=== PATIENT | male | born 1940 | race Caucasian/White ===

== ENCOUNTER 2018-06-16 08:01 | Inpatient (IN) | payer MEDICARE ==
[~2018-06-16] VITALS: Ht 182.9 cm; Wt 98.4 kg
[~2018-06-16 08:01] MED LIST: AMIO100T4 PO; APIX5TAB PO; ASPI-496 PO; ATOR40TA PO; CARV3.122 PO; DIGO125T81 PO; FURO-93 PO; LEVO125T5 PO; LISI2.5T PO; POTA10CA PO; SILD50TA PO; SPIR25TA5 PO; TADA20TA PO
[2018-06-16] MEDS ORDERED: MIRT15TA4 PO (08:43)
[2018-06-16] MEDS ORDERED: SAXA5TAB PO (08:43)
[2018-06-16] MEDS ORDERED: MEXI150C PO (08:43)
[2018-06-16 08:47] LABS: BASOPHILS # (AUTO) 0.01 x10^3/uL (0-0.1); BASOPHILS % (AUTO) 0 % (0-1); EOSINOPHILS # (AUTO) 0.15 x10^3/uL (0-0.4); EOSINOPHILS % (AUTO) 2 % (1-7); LYMPHOCYTES # (AUTO) 1.03 x10^3/uL (1-3.4); LYMPHOCYTES % (AUTO) 13 % (22-44); MD NO; MEAN CORPUSCULAR HEMOGLOBIN 29.5 pg (27.5-34.5); MEAN CORPUSCULAR HGB CONC 32.6 g/dL (33.2-36.2); MEAN CORPUSCULAR VOLUME 90.5 fL (81-97); MEAN PLATELET VOLUME 8.7 fL (7.4-10.4); MONOCYTES # (AUTO) 0.52 x10^3/uL (0.2-0.8); MONOCYTES % (AUTO) 7 % (2-9); NEUTROPHILS # (AUTO) 6.15 x10^3/uL (1.8-6.8); NEUTROPHILS % (AUTO) 78 % (42-75); PLATELET COUNT 180 x10^3/uL (130-400); RED BLOOD COUNT 5.43 x10^6/uL (4.38-5.82); RED CELL DISTRIBUTION WIDTH 16.4 % (9.4-14.8)
[2018-06-16] MEDS ORDERED: MORPHINE SULFATE 4 MG/ML, 1ML ONE (08:50)
[2018-06-16 08:55] LABS: INTERNATIONAL NORMALIZED RATIO 1.16 (0.93-1.1); PROTHROMBIN TIME 11.9 Seconds (9.6-11.5)
[2018-06-16 08:56] LABS: ALANINE AMINOTRANSFERASE 27 U/L (12-78); ALBUMIN 3.7 g/dL (3.4-5.0); ANION GAP 8 mmol/L (5-15); CALCIUM 8.4 mg/dL (8.5-10.1); CHLORIDE 106 mmol/L (98-107); CREATININE 1.38 mg/dL (0.7-1.3)
[2018-06-16] MEDS ORDERED: MORPHINE SULFATE 4 MG/ML, 1ML IVPush PRN ×2 (09:00→15:00)
[2018-06-16] MEDS ORDERED: SODIUM CHLORIDE FLUSH 10ML SYR IVF ONE (09:00)
[2018-06-16 09:10] LABS: ALKALINE PHOSPHATASE 49 U/L (45-117); BILIRUBIN,TOTAL 0.5 mg/dL (0.2-1.0); TOTAL PROTEIN 7.1 g/dL (6.4-8.2)
[2018-06-16] MEDS ORDERED: ANTI INHIBITOR COAGULANT COMP IVPush ONE (11:30)
[2018-06-16] MEDS ORDERED: FENTANYL PF 250 MCG/5ML ONE (11:53)
[2018-06-16] MEDS ORDERED: SODIUM CHLORIDE 0.9% 500 ML IV STA (12:04)
[2018-06-16] MEDS ORDERED: PROTAMINE SULFATE 10 MG/ML, 5ML ONE (12:23)
[2018-06-16] MEDS ORDERED: HEPARIN 1,000 UNITS/ML, 10ML ONE (12:24)
[2018-06-16] MEDS ORDERED: THROMBIN 20,000 UNIT VIAL TP ONE (12:24)
[2018-06-16] MEDS ORDERED: BACITRACIN 50,000 UNIT ONE (12:24)
[2018-06-16] MEDS ORDERED: SODIUM CHLORIDE 0.9% 1,000 ML IV ONE (12:26)
[2018-06-16] MEDS ORDERED: SODIUM CHLORIDE 0.9% 500 ML IV ONE (12:30)
[2018-06-16] MEDS ORDERED: SODIUM CHLORIDE FLUSH 10ML SYR IVF PRN (12:30)
[2018-06-16] MEDS ORDERED: PROPOFOL 10 MG/ML, 20ML ONE ×2 (13:10→14:29)
[2018-06-16] MEDS ORDERED: PHENYLEPHRINE 10 MG/ML ONE (13:10)
[2018-06-16] MEDS ORDERED: SUCCINYLCHOLINE 20 MG/ML, 10ML ONE ×2 (13:10→14:29)
[2018-06-16] MEDS ORDERED: ROCURONIUM 10 MG/ML,10ML ONE (13:10)
[2018-06-16] MEDS ORDERED: CEFAZOLIN 1,000 MG ONE ×2 (13:10→14:29)
[2018-06-16] MEDS ORDERED: NEOSTIGMINE 1 MG/ML, 10ML ONE ×2 (13:10→14:29)
[2018-06-16] MEDS ORDERED: ONDANSETRON 2MG/ML, 2ML ONE ×2 (13:10→14:29)
[2018-06-16] MEDS ORDERED: GLYCOPYRROLATE 0.2MG/1ML, 5ML ONE ×2 (13:10→14:29)
[2018-06-16] MEDS ORDERED: DOCUSATE 100 MG CAPSULE PO PRN (13:30)
[2018-06-16] MEDS ORDERED: BISACODYL 10 MG SUPP PR PRN (13:30)
[2018-06-16] MEDS ORDERED: hydrALAzine 20 MG/ML, 1ML IVPush PRN (13:30)
[2018-06-16] MEDS ORDERED: POLYETHYLENE GLYCOL 17 GM PACKET PO PRN (13:30)
[2018-06-16 14:24] LABS: HEMOGLOBIN A1C 7.1 % (4.2-6.3)
[2018-06-16] MEDS ORDERED: DEXAMETHASONE 4 MG/ML, 1ML ONE (14:29)
[2018-06-16] MEDS ORDERED: ROCURONIUM 10MG/ML,5ML ONE (14:29)
[2018-06-16] MEDS ORDERED: VISIPAQUE 270 MG/ML, 50ML BOTTLE ONE (14:31)
[2018-06-16] MEDS ORDERED: FENTANYL PF 100 MCG/2ML IV PRN (15:00)
[2018-06-16] MEDS ORDERED: EPHEDRINE 50 MG/ML, 1ML IVPush PRN (15:00)
[2018-06-16] MEDS ORDERED: ONDANSETRON 2MG/ML, 2ML IV PRN ×2 (15:00→16:00)
[2018-06-16] MEDS ORDERED: OXYcodone/APAP 5/325MG TABLET PO PRN (16:00)
[2018-06-16] MEDS ORDERED: morphine SULFATE 10 MG/ML, 1ML IV PRN (16:00)
[2018-06-16] MEDS ORDERED: DEXTROSE 50%, 50ML SYRINGE IVPush PRN (17:00)
[2018-06-16] MEDS ORDERED: DEXTROSE 4 GM TAB.CHEW PO PRN (17:00)
[2018-06-16] MEDS ORDERED: GLUCAGON 1 MG IM PRN (17:00)
[2018-06-16] MEDS ORDERED: ALBUTEROL SULFATE 2.5 MG/3 ML NPPB PRN (17:30)
[2018-06-16] MEDS: POTASSIUM CHLORIDE 20 MEQ in D5%-0.45% NACL 1,000 ML IV SCH (17:31)
[2018-06-16] MEDS: CEFAZOLIN PMX 1GM/50ML 50 ML IVPB SCH (17:31)
[2018-06-16] MEDS: APIXABAN 5 MG TABLET PO SCH (21:13)
[2018-06-16] MEDS: ATORVASTATIN 40 MG TABLET PO SCH (21:13)
[2018-06-16] MEDS: CARVEDILOL 6.25 MG TABLET PO SCH (21:14)
[2018-06-16] MEDS: MEXILETINE 150 MG CAPSULE PO SCH (21:14)
[2018-06-16] MEDS: SODIUM CHLORIDE FLUSH 10ML SYR IVF SCH (21:15)
[2018-06-16] MEDS: INSULIN LISPRO 100 UNITS/ML, PEN SQ-INSULIN SCH (21:22)
[2018-06-17] MEDS: CEFAZOLIN PMX 1GM/50ML 50 ML IVPB SCH (00:13)
[2018-06-17] MEDS: POTASSIUM CHLORIDE 20 MEQ in D5%-0.45% NACL 1,000 ML IV SCH (03:09)
[2018-06-17 04:00] VITALS: BP 106/52
[2018-06-17 05:43] LABS: BASOPHILS # (AUTO) 0.03 x10^3/uL (0-0.1); BASOPHILS % (AUTO) 0 % (0-1); EOSINOPHILS # (AUTO) 0.11 x10^3/uL (0-0.4); EOSINOPHILS % (AUTO) 1 % (1-7); LYMPHOCYTES # (AUTO) 0.94 x10^3/uL (1-3.4); LYMPHOCYTES % (AUTO) 11 % (22-44); MD NO; MEAN CORPUSCULAR HEMOGLOBIN 30.3 pg (27.5-34.5); MEAN CORPUSCULAR HGB CONC 33.1 g/dL (33.2-36.2); MEAN CORPUSCULAR VOLUME 91.5 fL (81-97); MEAN PLATELET VOLUME 9.1 fL (7.4-10.4); MONOCYTES # (AUTO) 0.77 x10^3/uL (0.2-0.8); MONOCYTES % (AUTO) 9 % (2-9); NEUTROPHILS # (AUTO) 6.92 x10^3/uL (1.8-6.8); NEUTROPHILS % (AUTO) 79 % (42-75); PLATELET COUNT 167 x10^3/uL (130-400); RED BLOOD COUNT 4.86 x10^6/uL (4.38-5.82); RED CELL DISTRIBUTION WIDTH 16.3 % (9.4-14.8)
[2018-06-17 05:53] LABS: ANION GAP 5 mmol/L (5-15); CALCIUM 7.9 mg/dL (8.5-10.1); CHLORIDE 107 mmol/L (98-107)
[2018-06-17 06:03] LABS: ALANINE AMINOTRANSFERASE 22 U/L (12-78); ALBUMIN 3.1 g/dL (3.4-5.0); ALKALINE PHOSPHATASE 42 U/L (45-117); BILIRUBIN,TOTAL 0.6 mg/dL (0.2-1.0); CREATININE 1.12 mg/dL (0.7-1.3)
[2018-06-17] MEDS: MEXILETINE 150 MG CAPSULE PO SCH ×3 (06:18→21:06)
[2018-06-17] MEDS: LEVOTHYROXINE 125 MCG TABLET PO SCH (06:19)
[2018-06-17] MEDS: INSULIN LISPRO 100 UNITS/ML, PEN SQ-INSULIN SCH ×4 (06:26→21:00)
[2018-06-17] MEDS: ASPIRIN 81 MG TABLET EC PO SCH (09:13)
[2018-06-17] MEDS: AMIODARONE 200 MG TABLET PO SCH (09:13)
[2018-06-17] MEDS: CARVEDILOL 6.25 MG TABLET PO SCH ×2 (09:14→21:11)
[2018-06-17] MEDS: APIXABAN 5 MG TABLET PO SCH ×2 (09:14→21:06)
[2018-06-17] MEDS: SODIUM CHLORIDE FLUSH 10ML SYR IVF SCH ×2 (09:15→21:11)
[2018-06-17 20:14] VITALS: BP 116/74
[2018-06-17] MEDS ORDERED: TEMAZEPAM 15 MG CAPSULE PO PRN (21:00)
[2018-06-17] MEDS: ATORVASTATIN 40 MG TABLET PO SCH (21:06)
[2018-06-18 02:54] VITALS: BP 103/67
[2018-06-18 05:10] LABS: BASOPHILS # (AUTO) 0.02 x10^3/uL (0-0.1); BASOPHILS % (AUTO) 0 % (0-1); EOSINOPHILS # (AUTO) 0.13 x10^3/uL (0-0.4); EOSINOPHILS % (AUTO) 2 % (1-7); LYMPHOCYTES # (AUTO) 1.05 x10^3/uL (1-3.4); LYMPHOCYTES % (AUTO) 12 % (22-44); MD NO; MEAN CORPUSCULAR HEMOGLOBIN 29.8 pg (27.5-34.5); MEAN CORPUSCULAR VOLUME 90.4 fL (81-97); MEAN PLATELET VOLUME 9.1 fL (7.4-10.4); MONOCYTES # (AUTO) 1.05 x10^3/uL (0.2-0.8); MONOCYTES % (AUTO) 12 % (2-9); NEUTROPHILS # (AUTO) 6.42 x10^3/uL (1.8-6.8); NEUTROPHILS % (AUTO) 74 % (42-75); PLATELET COUNT 141 x10^3/uL (130-400); RED BLOOD COUNT 4.67 x10^6/uL (4.38-5.82); RED CELL DISTRIBUTION WIDTH 16.3 % (9.4-14.8)
[2018-06-18] MEDS: MEXILETINE 150 MG CAPSULE PO SCH ×2 (05:18→14:48)
[2018-06-18] MEDS: LEVOTHYROXINE 125 MCG TABLET PO SCH (05:18)
[2018-06-18 05:19] LABS: CALCIUM 8.1 mg/dL (8.5-10.1); CHLORIDE 105 mmol/L (98-107)
[2018-06-18 05:25] LABS: ALANINE AMINOTRANSFERASE 21 U/L (12-78); ALKALINE PHOSPHATASE 41 U/L (45-117); ANION GAP 3 mmol/L (5-15); BILIRUBIN,TOTAL 0.7 mg/dL (0.2-1.0); CREATININE 1.28 mg/dL (0.7-1.3); TOTAL PROTEIN 6.1 g/dL (6.4-8.2)
[2018-06-18 06:50] VITALS: BP 90/53
[2018-06-18] MEDS: INSULIN LISPRO 100 UNITS/ML, PEN SQ-INSULIN SCH ×2 (07:00→11:00)
[2018-06-18] MEDS ORDERED: RIVAROXABAN 20 MG TABLET PO SCH (08:30)
[2018-06-18 08:56] VITALS: BP 94/60
[2018-06-18] MEDS: AMIODARONE 200 MG TABLET PO SCH (09:02)
[2018-06-18] MEDS: ASPIRIN 81 MG TABLET EC PO SCH (09:02)
[2018-06-18] MEDS: CARVEDILOL 6.25 MG TABLET PO SCH (09:03)
[2018-06-18] MEDS: SODIUM CHLORIDE FLUSH 10ML SYR IVF SCH (09:11)
[2018-06-18] MEDS ORDERED: ASPI-496 PO (09:17)
[2018-06-18] MEDS ORDERED: CARV3.122 PO (09:17)
[2018-06-18] MEDS ORDERED: ATOR40TA PO (09:17)
[2018-06-18] MEDS ORDERED: AMIO100T4 PO (09:17)
[2018-06-18] MEDS ORDERED: DOCU-131 PO (09:17)
[2018-06-18] MEDS ORDERED: LEVO125T5 PO (09:17)
[2018-06-18] MEDS ORDERED: RIVA20TA PO (09:17)
[2018-06-18] MEDS ORDERED: MEXI150C PO (09:17)
[2018-06-18] MEDS ORDERED: SPIR25TA5 PO ×2 (09:29→09:37)
[2018-06-18] MEDS ORDERED: DIGO125T81 PO (09:29)
[2018-06-18] MEDS ORDERED: FURO-93 PO (09:29)
[2018-06-18] MEDS ORDERED: LISI2.5T PO (09:29)
[2018-06-18] MEDS ORDERED: POTA10CA PO (09:30)
[2018-06-18] MEDS ORDERED: LISI5TAB7 PO (09:36)
[2018-06-18] MEDS ORDERED: FURO20TA3 PO (09:37)
[2018-06-18 13:12] VITALS: BP 101/62
== END 2018-06-18 15:30 | disposition home health service (06) | DRG 252 ==
LOC: ED 11:18 → EDIP 12:26 → CCU 15:29 → 5SO 06-17 18:56 → DCLOUNGE 06-18 15:08
PROVIDERS: ADMIT Internal Medicine; ATTEND Internal Medicine
PROC: 04CL0ZZ Extirpation of Matter from Left Femoral Artery, Open Approach (ICD-10-PCS; principal; 2018-06-16 12:45)
DX: I99.8 Other disorder of circulatory system (principal); J96.01 Acute respiratory failure with hypoxia; N17.9 Acute kidney failure, unspecified; I73.9 Peripheral vascular disease, unspecified; I82.91 Chronic embolism and thrombosis of unspecified vein; I50.22 Chronic systolic (congestive) heart failure; E03.9 Hypothyroidism, unspecified; E78.5 Hyperlipidemia, unspecified; F17.210 Nicotine dependence, cigarettes, uncomplicated; I11.0 Hypertensive heart disease with heart failure; I25.10 Atherosclerotic heart disease of native coronary artery without angina pectoris; J44.9 Chronic obstructive pulmonary disease, unspecified; I48.91 Unspecified atrial fibrillation; I25.5 Ischemic cardiomyopathy; Z95.1 Presence of aortocoronary bypass graft; Z95.810 Presence of automatic (implantable) cardiac defibrillator; Z79.01 Long term (current) use of anticoagulants; Z88.0 Allergy status to penicillin; Z82.49 Family history of ischemic heart disease and other diseases of the circulatory system; Z79.899 Other long term (current) drug therapy; Z79.1 Long term (current) use of non-steroidal anti-inflammatories (NSAID); Z79.2 Long term (current) use of antibiotics; Z88.8 Allergy status to other drugs, medicaments and biological substances; Z88.6 Allergy status to analgesic agent
CPT/HCPCS: 36415; 71045; 75710; 80053; 80162; 82962; 83036; 83735; 84100; 85025; 85610; 85730; 87081; 93005; 93922; 93926; 94640; 96374; 96375; J0690; J1100; J1644; J2405; J2704; J2710; J2720; J3010; J3480; J3490; J7198; J7613; Q9966; C1757; J0330; J2370; J7040